=== PATIENT | male | born 2000 | race Hispanic/Latino ===

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

== ENCOUNTER 2019-05-05 09:34 | Emergency (ER) | payer MEDICAID, OTHER, SELFPAY ==
[~2019-05-05] VITALS: Ht 185.4 cm; Wt 105.0 kg
[2019-05-05 11:39] VITALS: BP 137/64
--- NOTE | 2019-05-05 13:47 | REP ---
REASON: Pain after trauma. FOOT: FINDINGS: The joint spaces are symmetric and relatively well maintained. There is no evidence of acute fracture or destructive osseous lesion. IMPRESSION: Negative. Unreviewed
--- NOTE | 2019-05-05 13:49 | REP ---
REASON: Pain after trauma. ANKLE: COMPARISON: No priors. FINDINGS: No acute fracture or destructive osseous lesion. The mortise is intact. Unreviewed
== END 2019-05-05 11:41 | disposition home or self-care (01) ==
LOC: M ED 09:34
DX: S93.412A Sprain of calcaneofibular ligament of left ankle, initial encounter (principal); S93.492A Sprain of other ligament of left ankle, initial encounter; W01.0XXA Fall on same level from slipping, tripping and stumbling without subsequent striking against object, initial encounter; Y92.019 Unspecified place in single-family (private) house as the place of occurrence of the external cause

== ENCOUNTER 2019-07-18 08:00 | Emergency (ER) | payer SELFPAY ==
[~2019-07-18] VITALS: Ht 188 cm; Wt 103.6 kg
[2019-07-18 08:01] VITALS: BP 128/61
== END 2019-07-18 09:02 | disposition home or self-care (01) ==
LOC: M ED 08:00
DX: J02.9 Acute pharyngitis, unspecified (principal); Z11.59 Encounter for screening for other viral diseases
CPT/HCPCS: 87486; 87581; 87633; 87798; 87880; 99283; U0003